=== PATIENT | male | born 1935 | race Caucasian/White ===

== ENCOUNTER → 2017-04-30 | Outpatient (CLI) | payer MEDICARE, OTHER ==
--- NOTE | 2017-05-03 09:38 | CT ---
EXAM DESCRIPTION: Chest w/Contrast CLINICAL HISTORY: 82 years, Male, F/U LUNG NODULES COMPARISON: August 04, 2016 TECHNIQUE: Thin-section axial CT images are obtained during rapid bolus administration of nonionic IV contrast media. Reconstructed MPR images are created and reviewed as well. This exam was performed according to our departmental dose-optimization program, which includes automated exposure control, adjustment of the mA and/or kV according to patient size and/or use of iterative reconstruction technique. FINDINGS: Densely calcified granuloma at the lateral right lung base approximately 1 cm in size is unchanged from prior study. Tiny area of pleural thickening at the lateral left lung base is less prominent than previously seen. Posteriorly on the right a tiny subpleural nodule is stable and unchanged. Mild dependent atelectatic changes in the posterior lung base particularly on the right is apparent. The medial posterior left lung base milder chronic scarring is stable and unchanged from prior examination. Aortic and coronary calcification is noted. The superior mediastinum and thoracic inlet are stable and unremarkable. Small subcentimeter mediastinal lymph nodes anteriorly are unchanged. No hilar dominant mass is seen. Below the diaphragm marked fatty replacement of the liver is present without focal mass. The pancreas and adrenal glands are unremarkable with small granulomatous calcifications within the spleen. IMPRESSION: 1. Stable examination compared to previous study with the dense granuloma at the lateral right lung base and tiny areas of pleural and subpleural parenchymal nodularity and thickening that are entirely stable with no new abnormalities noted. Chronic scarring in the medial left lung base is stable. No further workup is recommended. 2. Aortic and coronary calcification 3. Marked fatty replacement of the liver without focal mass. Electronically signed by: Miguelangel Alvarez MD 05/03/2017 9:36 AM CDT
== END ==
LOC: CT 09:48
PROVIDERS: ATTEND Internal Medicine Hematology & Oncology
DX: R91.1 Solitary pulmonary nodule (principal); Z01.812 Encounter for preprocedural laboratory examination

== ENCOUNTER → 2017-08-11 | Outpatient (CLI) | payer MEDICARE, OTHER ==
--- NOTE | 2017-08-13 09:24 | RAD ---
EXAM DESCRIPTION: Chest,2 Views CLINICAL HISTORY: MALIGNANT MELANOMA COMPARISON: October 22, 2014 TECHNIQUE: PA/lateral FINDINGS: The heart is normal in size with tortuous aorta and normal vascularity. Old right posterior rib fractures are noted and unchanged. Small densely calcified granuloma at the lateral right lung base is evident. This is unchanged from recent CT examination. Pulmonary nodules or new densities suspicious for metastatic disease are not apparent. No pleural effusions or dense consolidation is seen. 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 IMPRESSION: No acute cardiopulmonary disease with no convincing evidence of metastatic disease. Electronically signed by: Miguelangel Alvarez MD 08/13/2017 9:23 AM [facility]
== END | disposition home or self-care (01) ==
LOC: LAB.O 15:15
PROVIDERS: ATTEND Surgery
DX: C43.39 Malignant melanoma of other parts of face (principal)

== ENCOUNTER → 2017-08-13 | Outpatient (CLI) | payer MEDICARE, OTHER | END | disposition home or self-care (01) | LOC: LAB.O 10:49 | PROVIDERS: ATTEND Surgery | DX: T81.4XXA Infection following a procedure, initial encounter (principal) ==

== ENCOUNTER → 2017-11-23 | Outpatient (CLI) | payer MEDICARE, OTHER | LOC: GMAJ 10:50 | PROVIDERS: ATTEND Family Medicine | DX: I10 Essential (primary) hypertension (principal); Z12.5 Encounter for screening for malignant neoplasm of prostate | CPT/HCPCS: 84443; G0103 ==

== ENCOUNTER → 2019-10-12 | Outpatient (CLI) | payer MEDICARE, OTHER ==
--- NOTE | 2019-10-12 15:35 | CT ---
EXAM DESCRIPTION: Chest w/Contrast CLINICAL HISTORY: COUGH COMPARISON: April 30, 2017 TECHNIQUE: Postcontrast CT images of the chest are obtained using standard imaging protocol. This exam was performed according to our departmental dose-optimization program, which includes automated exposure control, adjustment of the mA and/or kV according to patient size and/or use of iterative reconstruction technique . FINDINGS: Heart is enlarged. Severe coronary artery calcifications. Scattered calcified plaque of the tortuous thoracic aorta with calcified plaque of the great vessels. Nonspecific less than 1 cm mediastinal and hilar lymph nodes are seen. No pleural or pericardial effusion. Heterogeneous decreased attenuation of the liver. Visualized upper abdomen shows no acute findings. Calcifications of the spleen. 9 mm calcified pulmonary nodule in the right middle lobe along the horizontal fissure. Findings are stable from previous. Several scattered less than 4 mm noncalcified pulmonary nodules in the right lower and right middle lobe along the horizontal fissure are stable from previous.. Lungs are normally aerated. No acute appearing infiltrates or consolidations. No worrisome noncalcified pulmonary nodules. Osseous structures show no aggressive bony lesions. Remote healed right posterior rib fractures are seen. IMPRESSION: No acute findings on CT of the chest. 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 Hepatomegaly with diffuse fatty trace of the liver is again seen. Electronically signed by: Gerard Amos MD 10/12/2019 3:33 PM [facility]
== END ==
LOC: CT 10:51
PROVIDERS: ATTEND Family Medicine
DX: R05 Cough (principal); J98.4 Other disorders of lung; I25.10 Atherosclerotic heart disease of native coronary artery without angina pectoris; R16.0 Hepatomegaly, not elsewhere classified

== ENCOUNTER → 2020-03-06 | Outpatient (CLI) | payer MEDICARE, OTHER | LOC: GMAJ 16:02 | PROVIDERS: ATTEND Family Medicine | DX: N40.1 Benign prostatic hyperplasia with lower urinary tract symptoms (principal) ==